=== PATIENT | female | born 1950 | race Caucasian/White ===

== ENCOUNTER → 2018-09-18 19:59 | Outpatient (CLI) | payer MEDICARE | END | disposition home or self-care (01) | LOC: D.MAMMO 16:00 | PROVIDERS: ATTEND Family Medicine | DX: Z12.31 Encounter for screening mammogram for malignant neoplasm of breast (principal) ==

== ENCOUNTER → 2019-08-03 12:25 | Outpatient (CLI) | payer MEDICARE | END | disposition home or self-care (01) | LOC: D.HCCECHO 12:25 | PROVIDERS: ATTEND Internal Medicine Cardiovascular Disease | DX: I25.10 Atherosclerotic heart disease of native coronary artery without angina pectoris (principal) ==

== ENCOUNTER → 2020-08-16 10:12 | Outpatient (CLI) | payer MEDICARE | END | disposition home or self-care (01) | LOC: D.HCCECHO 10:12 | PROVIDERS: ATTEND Internal Medicine Cardiovascular Disease | DX: I34.0 Nonrheumatic mitral (valve) insufficiency (principal) ==